=== PATIENT | female | born 1945 | race Caucasian/White ===

== ENCOUNTER → 2017-04-05 | Outpatient (CLI) | payer MEDICARE, BC ==
--- NOTE | 2017-04-05 12:18 | MM ---
Reason for exam: follow-up at short interval from prior study. Last mammogram was performed 8 months ago. History: Patient is postmenopausal, has history of high-risk lesion on a previous biopsy at age 66, and has history of breast cancer at age 65. Family history of premenopausal breast cancer in paternal cousin at age 49 and premenopausal breast cancer in paternal aunt at age 49. Benign MG stereo VAD BX LT of the left breast, August 23, 2016. High risk US RT VAD breast biopsy of the right breast, July 22, 2012. High risk US RT VAD breast biopsy of the right breast, July 22, 2012. Malignant left breast needle localization of the left breast, December 04, 2011. Lumpectomy of the left breast, December 04, 2011. Malignant left mammotome panel of the left breast, November 20, 2011. Benign excisional biopsy of the left breast, 1989. Benign excisional biopsy of the left breast, 1979. Benign excisional biopsy of the left breast, 1969. Took hormonal contraceptives for 3 months. Took estrogen for 5 years beginning at age 51. Physical Findings: Nurse did not find any significant physical abnormalities on exam. MG Diagnostic Mammo LT w CAD CC and MLO view(s) were taken of the left breast. Prior study comparison: August 03, 2016, bilateral MG 3d diag mammo w/cad ALBA. August 02, 2015, bilateral MG diagnostic mammo w CAD ALBA. July 10, 2014, bilateral MG diagnostic mammo w CAD ALBA. The breast tissue is heterogeneously dense. This may lower the sensitivity of mammography. Finding #1: Architectural distortion in the left breast. Finding #2: There are typically benign round calcifications in the left breast. There is no discrete abnormality. These results were verbally communicated with the patient and result sheet given to the patient on 04/05/17. ASSESSMENT: Benign, BI-RAD 2 RECOMMENDATION: Routine screening mammogram of both breasts in 5 months. Back on schedule.
== END | disposition home or self-care (01) ==
LOC: RADMAMWWP 10:22
PROVIDERS: ATTEND Surgery
DX: R92.8 Other abnormal and inconclusive findings on diagnostic imaging of breast (principal)

== ENCOUNTER → 2018-11-12 | Outpatient (CLI) | payer MEDICARE, BC ==
--- NOTE | 2018-11-16 11:55 | MM ---
Reason for exam: additional evaluation requested from prior study. Last mammogram was performed 1 year and 7 months ago. History: Patient is postmenopausal, has history of high-risk lesion on a previous biopsy at age 66, and has history of breast cancer at age 65. Family history of premenopausal breast cancer in paternal cousin at age 49 and premenopausal breast cancer in paternal aunt at age 49. Benign MG stereo VAD BX LT of the left breast, August 23, 2016. High risk US RT VAD breast biopsy of the right breast, July 22, 2012. High risk US RT VAD breast biopsy of the right breast, July 22, 2012. Malignant left breast needle localization of the left breast, December 04, 2011. Lumpectomy of the left breast, December 04, 2011. Malignant left mammotome panel of the left breast, November 20, 2011. Benign excisional biopsy of the left breast, 1989. Benign excisional biopsy of the left breast, 1979. Benign excisional biopsy of the left breast, 1969. Took hormonal contraceptives for 3 months. Took estrogen for 5 years beginning at age 51. Indicated problem(s): other indicated problem in the left breast. Physical Findings: Nurse did not find any significant physical abnormalities on exam. MG 3D Diag Mammo W/Cad ALBA Bilateral CC and MLO view(s) were taken. Prior study comparison: April 05, 2017, left breast MG diagnostic mammo LT w CAD. August 03, 2016, bilateral MG 3d diag mammo w/cad ALBA. The breast tissue is heterogeneously dense. This may lower the sensitivity of mammography. There is a distortion in the left breast at known biopsy sites. Previous mammotome biopsy in right x2. No discrete abnormality. These results were verbally communicated with the patient and result sheet given to the patient on 11/12/18. ASSESSMENT: Benign, BI-RAD 2 RECOMMENDATION: Follow-up diagnostic mammogram of both breasts in 1 year.
== END ==
LOC: RADMAMWWP 12:48
PROVIDERS: ATTEND Internal Medicine
DX: Z08 Encounter for follow-up examination after completed treatment for malignant neoplasm (principal); Z85.3 Personal history of malignant neoplasm of breast
CPT/HCPCS: 77066; G0279; 77062

== ENCOUNTER → 2018-11-14 | Outpatient (CLI) | payer MEDICARE, BC ==
--- NOTE | 2018-11-14 16:48 | BD ---
EXAMINATION TYPE: Axial Bone Density DATE OF EXAM: 11/14/2018 COMPARISON: NONE CLINICAL HISTORY: Height: 64.5 Weight: 157.2 FRAX RISK QUESTIONS: Alcohol (3 or more units per day): no Family History (Parent hip fracture): no Glucocorticoids (More than 3mos): no (Ex: prednisone, prednisolone, methylprednisolone, dexamethasone, and hydrocortisone). History of Fracture in Adulthood: no Secondary Osteoporosis: 1. Type 1 Diabetes: no 2. Hyperthyroidism: no 3. Menopause before 45: no 4. Malnutrition: no 5. Chronic liver disease: no Rheumatoid Arthritis: no Current Tobacco Use: no RISK FACTORS HISTORY OF: Family History of Osteoporosis: no Active: yes Diet low in dairy products/other sources of calcium: yes Postmenopausal woman: around 46 years old Lost more than 2 inches in height since high school: yes MEDICATIONS: bp meds, heart meds Additional History: pt had breast cancer 7 years ago EXAM MEASUREMENTS: Bone mineral densitometry was performed using the [employer] System. Bone mineral density as measured about the Lumbar spine is: ----- L1-L4(G/cm2): 1.326 T Score Values are as follows: ----- L2: 0.7 ----- L3: 2.7 ----- L4: 0.5 ----- L1-L4: 1.2 Bone mineral density has: increased 5.0 % since study of: 02.20.2012 Bone mineral density about the R hip (g/cm2): 1.091 Bone mineral density about the L hip (g/cm2): 0.989 T Score values are as follows: -----R Neck: 0.4 -----L Neck: -0.3 -----R Total: 1.3 -----L Total: 0.9 Bone mineral density has: increased 3.5 % since study of: 02.20.2012 IMPRESSION: Normal (Values between +1 and -1 indicate normal bone mass). Consider repeating this study in 5 year s or sooner if there is some new clinical indication. NOTE: T-SCORE=SD OF THE YOUNG ADULT MEAN.
== END ==
LOC: RADBDWWP 14:29
PROVIDERS: ATTEND Internal Medicine
DX: Z13.820 Encounter for screening for osteoporosis (principal); Z78.0 Asymptomatic menopausal state
CPT/HCPCS: 77080

== ENCOUNTER → 2020-08-18 | Outpatient (CLI) | payer MEDICARE ==
--- NOTE | 2020-08-18 13:50 | MM ---
Reason for exam: additional evaluation requested from prior study. Last mammogram was performed 1 year and 9 months ago. History: Patient is postmenopausal, has history of high-risk lesion on a previous biopsy at age 66, and has history of breast cancer at age 65. Family history of premenopausal breast cancer in paternal cousin at age 49 and premenopausal breast cancer in paternal aunt at age 49. Benign MG stereo VAD BX LT of the left breast, August 23, 2016. High risk US RT VAD breast biopsy of the right breast, July 22, 2012. High risk US RT VAD breast biopsy of the right breast, July 22, 2012. Malignant left breast needle localization of the left breast, December 04, 2011. Lumpectomy of the left breast, December 04, 2011. Malignant left mammotome panel of the left breast, November 20, 2011. Benign excisional biopsy of the left breast, 1989. Benign excisional biopsy of the left breast, 1979. Benign excisional biopsy of the left breast, 1969. Took hormonal contraceptives for 3 months. Took estrogen for 5 years beginning at age 51. Physical Findings: Nurse did not find any significant physical abnormalities on exam. MG 3D Diag Mammo W/Cad ALBA Bilateral CC and MLO view(s) were taken. Prior study comparison: November 12, 2018, bilateral MG 3d diag mammo w/cad ALBA. April 05, 2017, left breast MG diagnostic mammo LT w CAD. There are scattered fibroglandular densities. Previous mammotome biopsy in the right breast. Asymmetric breast tissue greater in the right breast. Post surgical changes left breast. No significant new findings when compared with previous films. These results were verbally communicated with the patient and result sheet given to the patient on 08/18/20. ASSESSMENT: Benign, BI-RAD 2 RECOMMENDATION: Follow-up diagnostic mammogram of both breasts in 1 year.
== END | disposition home or self-care (01) ==
LOC: RADMAMWWP 13:03
PROVIDERS: ATTEND Internal Medicine
DX: Z08 Encounter for follow-up examination after completed treatment for malignant neoplasm (principal); Z85.3 Personal history of malignant neoplasm of breast
CPT/HCPCS: 77066; G0279; 77062

== ENCOUNTER → 2021-09-20 | Outpatient (CLI) | payer MEDICARE ==
--- NOTE | 2021-09-20 14:55 | MM ---
Reason for exam: additional evaluation requested from prior study. Last mammogram was performed 1 year and 1 month ago. History: Patient is postmenopausal, has history of high-risk lesion on a previous biopsy at age 66, and has history of breast cancer at age 65. Family history of breast cancer in maternal grandmother, premenopausal breast cancer in paternal cousin at age 49, and premenopausal breast cancer in paternal aunt at age 49. Benign MG stereo VAD BX LT of the left breast, August 23, 2016. High risk US RT VAD breast biopsy of the right breast, July 22, 2012. High risk US RT VAD breast biopsy of the right breast, July 22, 2012. Malignant left breast needle localization of the left breast, December 04, 2011. Lumpectomy of the left breast, December 04, 2011. Malignant left mammotome panel of the left breast, November 20, 2011. Benign excisional biopsy of the left breast, 1989. Benign excisional biopsy of the left breast, 1979. Benign excisional biopsy of the left breast, 1969. Took hormonal contraceptives for 3 months. Took estrogen for 5 years beginning at age 51. Physical Findings: Nurse did not find any significant physical abnormalities on exam. MG 3D Diag Mammo W/Cad ALBA Bilateral CC and MLO view(s) were taken. Prior study comparison: August 18, 2020, bilateral MG 3d diag mammo w/cad ALBA. November 12, 2018, bilateral MG 3d diag mammo w/cad ALBA. There are scattered fibroglandular densities. Previous mammotome biopsy in the right breast. Asymmetric breast tissue greater in the left breast. Post surgical changes left breast. No significant new findings when compared with previous films. These results were verbally communicated with the patient and result sheet given to the patient on 09/20/21. ASSESSMENT: Benign, BI-RAD 2 RECOMMENDATION: Follow-up diagnostic mammogram of both breasts in 1 year.
== END | disposition home or self-care (01) ==
LOC: RADMAMWWP 13:15
PROVIDERS: ATTEND Internal Medicine
DX: C50.919 Malignant neoplasm of unspecified site of unspecified female breast (principal)
CPT/HCPCS: 77066; G0279; 77062

== ENCOUNTER 2023-02-23 07:59 | Observation (INO) | payer MEDICARE ==
[2023-02-23] MEDS ORDERED: SODIUM CHLORIDE 0.9% 500 ML 500 ML IV STA (08:13)
[2023-02-23] MEDS ORDERED: HEPARIN SODIUM 1,000 UN/ML (10ML VL) IV ONE (08:19)
--- NOTE | 2023-02-23 08:27 | ED ---
General Adult HPI - General Chief complaint: Arrhythmia/Palpitations Stated complaint: chest pain Time Seen by Provider: 02/23/23 08:00 Source: patient, family, RN notes reviewed, old records reviewed Mode of arrival: wheelchair Limitations: no limitations - History of Present Illness Initial comments: This is a 77-year-old female who is here at the hospital to get an endoscopy and when she was upstairs they noted her heart rate was over 130. The center down here to be evaluated. Patient states she's had tachycardia in the past but never had atrial fibrillation. Patient denies any chest pain shortness of breath or difficulty breathing. Patient denies any recent fever chills or cough per patient states she does not feel any palpitations. Patient denies any swelling to her legs or calf tenderness. Patient with any abdominal pain patient is a recent nausea vomiting diarrhea. - Related Data Home Medications Medication Instructions Recorded Confirmed Benazepril/Hydrochlorothiazide 1 each PO DAILY 02/21/23 02/23/23 [Benazepril-Hctz 10-12.5 mg Tab] Cholecalciferol [Vitamin D3 (25 50 mcg PO DAILY 02/21/23 02/23/23 Mcg = 1000 Iu)] Fexofenadine HCl [Shyanne Allergy] 180 mg PO DAILY 02/21/23 02/23/23 Magnesium 250 mg PO DAILY 02/21/23 02/23/23 Metoprolol Succinate (ER) [Toprol 25 mg PO DAILY 02/21/23 02/23/23 Xl] Omeprazole 20 mg PO DAILY 02/21/23 02/23/23 Zinc Glycinate [Zinc Chelate] 30 mg PO DAILY 02/21/23 02/23/23 Allergies Allergy/AdvReac Type Severity Reaction Status Date / Time banana Allergy Swelling Verified 02/23/23 08:04 Boyle And Derivatives Allergy Rash/Hives Verified 02/23/23 08:04 [Boyle] Latex, Natural Rubber Allergy swelling, Verified 02/23/23 08:04 rash, itching lidocaine Allergy Swelling, Verified 02/23/23 08:04 cold sensation throughout body potato Allergy throat Verified 02/23/23 08:04 swelling GALVEZ BEANS Allergy FACE Uncoded 02/23/23 08:04 SWELLING MANY ENVIRONMENT ALLERGIES Allergy Rash/Hives Uncoded 02/23/23 08:04 Review of Systems ROS Statement: Those systems with pertinent positive or pertinent negative responses have been documented in the HPI. ROS Other: All systems not noted in ROS Statement are negative. Past Medical History Past Medical History: Cancer, Chest Pain / Angina, GERD/Reflux, Hypertension, Liver Disease Additional Past Medical History / Comment(s): TACHYCARDIA. NON-ALCOHOLIC FATTY LIVER DISEASE. SLIGHT MEMORY ISSUES-AGE RELATED. DYSPNEA WITH CIGARETTE SMOKE AND HEAVY PERFUMES AND SCENTS. BASAL CELL SKIN CANCER. HYPOGLYCEMIA. BREAST CANCER History of Any Multi-Drug Resistant Organisms: None Reported Past Surgical History: Breast Surgery, Orthopedic Surgery Additional Past Surgical History / Comment(s): SKIN CANCER REMOVAL RIGHT HIGH. MULTIPLE BREAST BX'S. PARTIAL MASTECTOMY ON THE LEFT. ALBA. CARPAL TUNNEL RELEASE Additional Past Anesthesia/Blood Transfusion Reaction / Comment(s): TAKES A LONG TIME TO WAKE UP AND IS VERY SLEEPY AFTER Past Psychological History: No Psychological Hx Reported Smoking Status: Never smoker Past Alcohol Use History: Occasional Past Drug Use History: None Reported General Exam - General Exam Comments Initial Comments: GENERAL: Patient is well-developed and well-nourished. Patient is nontoxic and well- hydrated and is in no acute distress. ENT: Neck is soft and supple. No significant lymphadenopathy is noted. Oropharynx is clear. Moist mucous membranes. Neck has full range of motion without eliciting any pain. EYES: The sclera were anicteric and conjunctiva were pink and moist. Extraocular movements were intact and pupils were equal round and reactive to light. Eyelids were unremarkable. PULMONARY: Unlabored respirations. Good breath sounds bilaterally. No audible rales rhonchi or wheezing was noted. CARDIOVASCULAR: Patient is tachycardic with an irregular rate at about 130 beats a minute ABDOMEN: Soft and nontender with normal bowel sounds. SKIN: Skin is clear with no lesions or rashes and otherwise unremarkable. NEUROLOGIC: Patient is alert and oriented x3. Cranial nerves II through XII are grossly intact. Motor and sensory are also intact. Normal speech, volume and content. Symmetrical smile. MUSCULOSKELETAL: Normal extremities with adequate strength and full range of motion. No lower extremity swelling or edema. No calf tenderness. LYMPHATICS: No significant lymphadenopathy is noted PSYCHIATRIC: Normal psychiatric evaluation. [id number] Limitations: no limitations Course Vital Signs 02/23/23 02/23/23 08:01 08:48 Temperature 97.9 F Pulse Rate 148 H 80 Respiratory 18 18 Rate Blood Pressure 134/92 144/79 O2 Sat by Pulse 98 95 Oximetry Medical Decision Making - Medical Decision Making EKG was interpreted by myself shows atrial fibrillation with rapid ventricular response at 123 bpm QRS is 70 QT interval 02 QTC is 375. Patient's EKG shows no ST segment dictation or depression. Patient converted to a sinus rhythm EKG was interpreted by myself the rate is at 79 bpm DC interval is on a 70 dresses 88 QT interval 362 QTC is 396. Patient's EKG shows no ST elevation. Patient does have T-wave inversions in 3 and aVF. Was pt. sent in by a medical professional or institution (, PA, DOT COMPLIANCE COORDINATOR, urgent care, hospital, or half-way...) When possible be specific @ -Patient was sent down to us from the operating room because they found her to have an irregular heartbeat Did you speak to anyone other than the patient for history (EMS, parent, family, police, friend...)? What history was obtained from this source @ -No Did you review nursing and triage notes (agree or disagree)? Why? @ -I reviewed and agree with nursing and triage notes Were old charts reviewed (outside hosp., previous admission, EMS record, old EKG, old radiological studies, urgent care reports/EKG's, half-way records)? Report findings @ -I reviewed prior EKGs and lab work on this patient Differential Diagnosis (chest pain, altered mental status, abdominal pain women, abdominal pain men, vaginal bleeding, weakness, fever, dyspnea, syncope, headache, dizziness, GI bleed, back pain, seizure, CVA, palpatations, mental health, musculoskeletal)? @ -Differential Palpitations Ventricular arrhythmias, atrial arrhythmias, myocardial infarction, anemia, thyrotoxicosis, electrolyte imbalance, hypokalemia, pulmonary embolism, pulmonary disease, drugs, alcohol, anxiety, stress.... This is not meant to be an all-inclusive list. EKG interpreted by me (3pts min.). @ -As above X-rays interpreted by me (1pt min.). @ -Chest x-ray was interpreted by myself I see no acute abnormality CT interpreted by me (1pt min.). @ -None done U/S interpreted by me (1pt. min.). @ -None done What testing was considered but not performed or refused? (CT, X-rays, U/S, labs)? Why? @ -None What meds were considered but not given or refused? Why? @ -None Did you discuss the management of the patient with other professionals (professionals i.e. , PA, DOT COMPLIANCE COORDINATOR, lab, RT, psych nurse, social science analyst, dish cloth inspector, teacher, financial services officer, case reviewer)? Give summary @ -Spoke with Dr. Lazo and he agreed to admit the patient Was smoking cessation discussed for >3mins.? @ -No Was critical care preformed (if so, how long)? @ -35 minutes Were there social determinants of health that impacted care today? How? (Homelessness, low income, unemployed, alcoholism, drug addiction, transportation, low edu. Level, literacy, decrease access to med. care, assisted, rehab)? @ -No Was there de-escalation of care discussed even if they declined (Discuss DNR or withdrawal of care, Hospice)? DNR status @ -No What co-morbidities impacted this encounter? (DM, HTN, Smoking, COPD, CAD, Cancer, CVA, ARF, Chemo, Hep., AIDS, mental health diagnosis, sleep apnea, morbid obesity)? @ -None Was patient admitted / discharged? Hospital course, mention meds given and route, prescriptions, significant lab abnormalities, going to OR and other pertinent info. @ -Started on a Cardizem drip and heparin. Patient converted to a normal sinus rhythm. I spoke with Dr. Lazo he agreed to admit the patient admitted the patient I wrote admitting orders and I consulted cardiology Undiagnosed new problem with uncertain prognosis? @ -No Drug Therapy requiring intensive monitoring for toxicity (Heparin, Nitro, Insulin, Cardizem)? @ -Heparin Were any procedures done? @ -No Diagnosis/symptom? @ -A. fib with rapid ventricular response Acute, or Chronic, or Acute on Chronic? @ -Acute Uncomplicated (without systemic symptoms) or Complicated (systemic symptoms)? @ -Uncomplicated Side effects of treatment? @ -No Exacerbation, Progression, or Severe Exacerbation? @ -No Poses a threat to life or bodily function? How? (Chest pain, [place], [place], pneumonia, PE, COPD, DKA, ARF, appy, cholecystitis, CVA, Diverticulitis, Homicidal, Suicidal, threat to staff... and all critical care pts) @ -Yes this can lead to poor cardiac output decreased perfusion and end organ dysfunction - Lab Data Result diagrams: 02/23/23 08:21 02/23/23 08:21 Lab Results 02/23/23 02/23/23 02/23/23 Range/Units 08:21 08:21 08:21 WBC 5.1 (3.8-10.6) k/uL RBC 5.38 (3.80-5.40) m/uL Hgb 15.7 (11.4-16.0) gm/dL Hct 48.1 H (34.0-46.0) % MCV 89.3 (80.0-100.0) fL MCH 29.1 (25.0-35.0) pg MCHC 32.6 (31.0-37.0) g/dL RDW 13.2 (11.5-15.5) % Plt Count 326 (150-450) k/uL MPV 6.7 Neutrophils % 52 % Lymphocytes % 36 % Monocytes % 6 % Eosinophils % 2 % Basophils % 0 % Neutrophils # 2.7 (1.3-7.7) k/uL Lymphocytes # 1.9 (1.0-4.8) k/uL Monocytes # 0.3 (0-1.0) k/uL Eosinophils # 0.1 (0-0.7) k/uL Basophils # 0.0 (0-0.2) k/uL PT 10.0 (9.0-12.0) sec INR 0.9 (<1.2) APTT 22.8 (22.0-30.0) sec Sodium 140 (137-145) mmol/L Potassium 3.7 (3.5-5.1) mmol/L Chloride 104 (98-107) mmol/L Carbon Dioxide 27 (22-30) mmol/L Anion Gap 9 mmol/L BUN 28 H (7-17) mg/dL Creatinine 0.86 (0.52-1.04) mg/dL Est GFR (CKD-EPI)AfAm 77 (>60 ml/min/1.73 sqM) Est GFR (CKD-EPI)NonAf 66 (>60 ml/min/1.73 sqM) Glucose 92 (74-99) mg/dL Calcium 9.6 (8.4-10.2) mg/dL Magnesium 1.9 (1.6-2.3) mg/dL Total Bilirubin 1.5 H (0.2-1.3) mg/dL AST 26 (14-36) U/L ALT 26 (4-34) U/L Alkaline Phosphatase 71 (38-126) U/L Troponin I (0.000-0.034) ng/mL Total Protein 6.8 (6.3-8.2) g/dL Albumin 4.0 (3.5-5.0) g/dL TSH 1.850 (0.465-4.680) mIU/L 02/23/23 Range/Units 08:21 WBC (3.8-10.6) k/uL RBC (3.80-5.40) m/uL Hgb (11.4-16.0) gm/dL Hct (34.0-46.0) % MCV (80.0-100.0) fL MCH (25.0-35.0) pg MCHC (31.0-37.0) g/dL RDW (11.5-15.5) % Plt Count (150-450) k/uL MPV Neutrophils % % Lymphocytes % % Monocytes % % Eosinophils % % Basophils % % Neutrophils # (1.3-7.7) k/uL Lymphocytes # (1.0-4.8) k/uL Monocytes # (0-1.0) k/uL Eosinophils # (0-0.7) k/uL Basophils # (0-0.2) k/uL PT (9.0-12.0) sec INR (<1.2) APTT (22.0-30.0) sec Sodium (137-145) mmol/L Potassium (3.5-5.1) mmol/L Chloride (98-107) mmol/L Carbon Dioxide (22-30) mmol/L Anion Gap mmol/L BUN (7-17) mg/dL Creatinine (0.52-1.04) mg/dL Est GFR (CKD-EPI)AfAm (>60 ml/min/1.73 sqM) Est GFR (CKD-EPI)NonAf (>60 ml/min/1.73 sqM) Glucose (74-99) mg/dL Calcium (8.4-10.2) mg/dL Magnesium (1.6-2.3) mg/dL Total Bilirubin (0.2-1.3) mg/dL AST (14-36) U/L ALT (4-34) U/L Alkaline Phosphatase (38-126) U/L Troponin I <0.012 (0.000-0.034) ng/mL Total Protein (6.3-8.2) g/dL Albumin (3.5-5.0) g/dL TSH (0.465-4.680) mIU/L Disposition Clinical Impression: Atrial fibrillation with rapid ventricular response Disposition: ADMITTED IP TO THIS HOSP Time of Disposition: 09:55
[2023-02-23] MEDS ORDERED: HEPARIN SOD,PORK IN 0.45% NACL 25,000 UNIT in 0.45% NACL 1 250ML.BAG IV SCH (08:30)
[2023-02-23] MEDS: DILTIAZEM DRIP BOLUS FROM BAG 1 MG SOLN IV ONE ×2 (08:38→08:51)
[2023-02-23 08:42] LABS: INR 0.9 (<1.2); Partial Thromboplastin Time 22.8 sec (22.0-30.0)
[2023-02-23 08:43] LABS: Basophils % (A) 0 %; Eosinophils # (A) 0.1 k/uL (0-0.7); Eosinophils % (A) 2 %; HCT 48.1 % (34.0-46.0); HGB 15.7 gm/dL (11.4-16.0); Lymphocytes # (A) 1.9 k/uL (1.0-4.8); Lymphocytes % (A) 36 %; MCH 29.1 pg (25.0-35.0); MCHC 32.6 g/dL (31.0-37.0); MCV 89.3 fL (80.0-100.0); Mean Platelet Volume 6.7; Monocytes # (A) 0.3 k/uL (0-1.0); Monocytes % (A) 6 %; Neutrophils # (A) 2.7 k/uL (1.3-7.7); Neutrophils % (A) 52 %; Platelet Count 326 k/uL (150-450); RBC 5.38 m/uL (3.80-5.40); RDW 13.2 % (11.5-15.5); WBC 5.1 k/uL (3.8-10.6)
[2023-02-23] MEDS ORDERED: DILTIAZEM 125 MG in SODIUM CHLORIDE 0.9% 100 ML IV SCH (08:45)
[2023-02-23 08:55] LABS: Calcium 9.6 mg/dL (8.4-10.2); Magnesium 1.9 mg/dL (1.6-2.3); Potassium 3.7 mmol/L (3.5-5.1); Total Bilirubin 1.5 mg/dL (0.2-1.3); Total Protein 6.8 g/dL (6.3-8.2)
--- NOTE | 2023-02-23 09:24 | XR ---
EXAMINATION TYPE: XR chest 2V DATE OF EXAM: 02/23/2023 COMPARISON: To 812 TECHNIQUE: PA and lateral views submitted. HISTORY: Dysrhythmia FINDINGS: The lungs are clear and there is no pneumothorax, pleural effusion, or focal pneumonia. Heart size normal and no overt failure. Osseous structures demonstrate hypertrophic and degenerative changes of the spine. AC joint arthropathy. Hyperinflation the lungs suggest COPD. IMPRESSION: 1. No acute process.
[2023-02-23] MEDS ORDERED: NITROGLYCERIN SL TABS 0.4 MG TAB SUBLINGUAL PRN (10:08)
--- NOTE | 2023-02-23 12:36 | P.CRDCN ---
History of Present Illness Consult date: 02/23/23 History of present illness: History of Present Illness: The patient is a 77-year-old female with known history of hypertension who presented to undergo upper endoscopy and prior to her procedure she was found to be in atrial fibrillation with rapid ventricle response. Patient has been told that she has an irregular heartbeat in the past but not atrial fibrillation, has been on metoprolol for a long time. She has occasional palpitations, brief. She did not feel the atrial fibrillation today. She has no dyspnea on exertion or chest discomfort. She denies any peripheral edema, PND or orthopnea. She has occasional dizziness but no syncope. Her [id number] score is 4. In the emergency room she was started on IV heparin and IV Cardizem. She is back in sinus mechanism at this time. Her troponin is normal. Medications: Toprol-XL 25 mg daily, benazepril HCT 1012-1/2 mg daily, omeprazole, magnesium, zinc Review of Systems: Respiratory: No history of asthma, bronchitis or recent cough. GI: She has occasional abdominal discomfort but no GI bleeding, she denies any nausea or vomiting : No hematuria or dysuria. Nervous System: No stroke or seizure. Physical Examination: 77-year-old female, alert and oriented no apparent distress ,Blood pressure 12 7/69, Heart rate 60 Head: Normocephalic. Eyes: Sclerae nonicteric. Neck: Good carotid upstroke, no bruit, no jugular venous distention. Lungs: Clear to auscultation. Heart: Regular rate and rhythm, S1-S2, no S3, no rub. No murmur. Abdomen: Soft nontender, positive bowel sounds no organomegaly. Extremities: No edema, intact distal pulses. Labs: Hemoglobin 15.7, potassium 3.7, BUN 28, creatinine 0.86, troponin less than 0.012. TSH 1.85. Chest x-ray with no acute infiltrate. EKG: Atrial fibrillation with rapid ventricle response and nonspecific ST-T wave changes, subsequent EKG sinus mechanism with nonspecific T wave changes inferiorly, cannot exclude inferior wall myocardial infarction of unknown duration. Impression: 1. Paroxysmal atrial fibrillation with a score of 4, probably going on for a long period of time 2. History of hypertension 3. Abnormal EKG with no documented history of myocardial infarction in the past 4. Prior history of abdominal discomfort with no history of GI bleeding Plan: 1. Stop IV heparin and IV Cardizem 2. Increase beta shira 3. Start anticoagulation with Eliquis 4. Obtain an echocardiogram with Doppler 5. Patient is stable with no further symptoms she may be able to be discharged home and followed up as an outpatient. 6. Thank you for this consult we will follow with you. Past Medical History Past Medical History: Cancer, Chest Pain / Angina, GERD/Reflux, Hypertension, Liver Disease Additional Past Medical History / Comment(s): TACHYCARDIA. NON-ALCOHOLIC FATTY LIVER DISEASE. SLIGHT MEMORY ISSUES-AGE RELATED. DYSPNEA WITH CIGARETTE SMOKE AND HEAVY PERFUMES AND SCENTS. BASAL CELL SKIN CANCER. HYPOGLYCEMIA. BREAST CANCER History of Any Multi-Drug Resistant Organisms: None Reported Past Surgical History: Breast Surgery, Orthopedic Surgery Additional Past Surgical History / Comment(s): SKIN CANCER REMOVAL RIGHT HIGH. MULTIPLE BREAST BX'S. PARTIAL MASTECTOMY ON THE LEFT. ALBA. CARPAL TUNNEL RELEASE Additional Past Anesthesia/Blood Transfusion Reaction / Comment(s): TAKES A LONG TIME TO WAKE UP AND IS VERY SLEEPY AFTER Past Psychological History: No Psychological Hx Reported Smoking Status: Never smoker Past Alcohol Use History: Occasional Past Drug Use History: None Reported Medications and Allergies Home Medications Medication Instructions Recorded Confirmed Type Benazepril/Hydrochlorothiazide 1 tab PO DAILY 02/21/23 02/23/23 History [Benazepril-Hctz 10-12.5 mg Tab] Cholecalciferol [Vitamin D3 (25 50 mcg PO DAILY 02/21/23 02/23/23 History Mcg = 1000 Iu)] Fexofenadine HCl [Shyanne Allergy] 180 mg PO DAILY 02/21/23 02/23/23 History Magnesium 250 mg PO DAILY 02/21/23 02/23/23 History Metoprolol Succinate (ER) [Toprol 25 mg PO DAILY 02/21/23 02/23/23 History Xl] Omeprazole 20 mg PO DAILY 02/21/23 02/23/23 History Zinc Glycinate [Zinc Chelate] 30 mg PO DAILY 02/21/23 02/23/23 History Allergies Allergy/AdvReac Type Severity Reaction Status Date / Time banana Allergy Swelling Verified 02/23/23 11:29 [place] And Derivatives Allergy Rash/Hives Verified 02/23/23 11:29 [[place]] Latex, Natural Rubber Allergy swelling, Verified 02/23/23 11:29 rash, itching lidocaine Allergy Swelling, Verified 02/23/23 11:29 cold sensation throughout body potato Allergy throat Verified 02/23/23 11:29 swelling GALVEZ BEANS Allergy FACE Uncoded 02/23/23 11:29 SWELLING MANY ENVIRONMENT ALLERGIES Allergy Rash/Hives Uncoded 02/23/23 11:29 Physical Exam Vitals: Vital Signs Temp Pulse Resp BP Pulse Ox 02/23/23 11:30 67 18 127/69 98 02/23/23 08:48 80 18 144/79 95 02/23/23 08:01 97.9 F 148 H 18 134/92 98 Intake and Output 02/22/23 02/23/23 02/23/23 22:59 06:59 14:59 Other: Weight 74.389 kg Results 02/23/23 08:21 02/23/23 08:21 Cardiac Enzymes 02/23/23 02/23/23 02/23/23 Range/Units 08:21 08:21 10:37 AST 26 (14-36) U/L Troponin I <0.012 <0.012 (0.000-0.034) ng/mL Coagulation 02/23/23 Range/Units 08:21 PT 10.0 (9.0-12.0) sec APTT 22.8 (22.0-30.0) sec CBC 02/23/23 Range/Units 08:21 WBC 5.1 (3.8-10.6) k/uL RBC 5.38 (3.80-5.40) m/uL Hgb 15.7 (11.4-16.0) gm/dL Hct 48.1 H (34.0-46.0) % Plt Count 326 (150-450) k/uL Comprehensive Metabolic Panel 02/23/23 Range/Units 08:21 Sodium 140 (137-145) mmol/L Potassium 3.7 (3.5-5.1) mmol/L Chloride 104 (98-107) mmol/L Carbon Dioxide 27 (22-30) mmol/L BUN 28 H (7-17) mg/dL Creatinine 0.86 (0.52-1.04) mg/dL Glucose 92 (74-99) mg/dL Calcium 9.6 (8.4-10.2) mg/dL AST 26 (14-36) U/L ALT 26 (4-34) U/L Alkaline Phosphatase 71 (38-126) U/L Total Protein 6.8 (6.3-8.2) g/dL Albumin 4.0 (3.5-5.0) g/dL Current Medications Generic Name Dose Route Start Last Admin Trade Name Freq PRN Reason Stop Dose Admin Apixaban 5 mg 02/23/23 12:30 Apixaban 5 Mg Tab PO BID COLT Protocol Metoprolol Succinate 25 mg 02/23/23 21:00 Metoprolol Succinate (Er) 25 Mg Tab.Er.24h PO BID COLT Non-Formulary Medication 1 tab 02/24/23 09:00 Benazepril/Hydrochlorothiazide [Benazepril-Hctz 10-12.5 Mg Tab] PO DAILY COLT Intake and Output 02/22/23 02/23/23 02/23/23 22:59 06:59 14:59 Other: Weight 74.389 kg Patient Weight 02/24/23 06:59 Weight 74.389 kg 02/23/23 08:21 02/23/23 08:21
[2023-02-23] MEDS: APIXABAN 5 MG TAB PO SCH ×2 (14:35→19:41)
--- NOTE | 2023-02-23 15:23 | P.HPIM ---
History of Present Illness H&P Date: 02/23/23 Chief Complaint: Sent to the ED for A. fib with RVR HPI Patient is a 77-year-old female with a past medical history of hypertension, GERD, seasonal ALLERGIES who was getting outpatient EGD because of heartburn symptoms. Before procedure and they checked her vital signs and she was found to be in A. fib with RVR so she was sent to the ED. Patient states that at the time when they checked her vital signs she did not have any palpitations. However she says that shortly afterwards when she went to lay down she could feel the palpitations. Patient's labs were unremarkable. Her troponins were negative 3. Her TSH was within normal limits. Before Cardizem was even initiated patient spontaneously converted back to normal sinus rhythm. Data reviewed: Initial EKG showed A. fib with RVR. Repeat EKG shows sinus rhythm. Review of systems: 10 ROS reviewed and are negative except as noted in HPI Physical exam General: [Alert and oriented, well nourished, no acute distress]. Eye: [PERRL, EOMI, normal conjunctiva]. HENT: [Normocephalic, clear tympanic membranes, normal hearing, moist oral mucosa, no scleral icterus, no sinus tenderness]. Neck: [Supple, non-tender, no carotid bruits, no JVD, no lymphadenopathy]. Lungs: [Clear to auscultation and percussion, non-labored respiration]. Heart: [Normal rate, regular rhythm, no murmur, gallop or edema]. Abdomen: [Soft, non-tender, non-distended, normal bowel sounds, no masses]. Musculoskeletal: [Normal range of motion and strength, no tenderness or swelling]. Skin: [Skin is warm, dry and pink, no rashes or lesions]. Neurologic: [Awake, alert, and oriented X3, CN II-XII intact]. Psychiatric: [Cooperative, appropriate mood and affect]. Assessment Paroxysmal atrial fibrillation History of hypertension GERD Plan I reviewed note from cardiology. Cardiology recommended to stop IV heparin and IV Cardizem Cardiology increased her beta shira and started patient on Eliquis Echocardiogram ordered. Anticipated discharge: Tomorrow Anticipated discharge place: Home Past Medical History Past Medical History: Cancer, Chest Pain / Angina, GERD/Reflux, Hypertension, Liver Disease Additional Past Medical History / Comment(s): TACHYCARDIA. NON-ALCOHOLIC FATTY LIVER DISEASE. SLIGHT MEMORY ISSUES-AGE RELATED. DYSPNEA WITH CIGARETTE SMOKE AND HEAVY PERFUMES AND SCENTS. BASAL CELL SKIN CANCER. HYPOGLYCEMIA. BREAST CANCER History of Any Multi-Drug Resistant Organisms: None Reported Past Surgical History: Breast Surgery, Orthopedic Surgery Additional Past Surgical History / Comment(s): SKIN CANCER REMOVAL RIGHT HIGH. MULTIPLE BREAST BX'S. PARTIAL MASTECTOMY ON THE LEFT. ALBA. CARPAL TUNNEL RELEASE Additional Past Anesthesia/Blood Transfusion Reaction / Comment(s): TAKES A LONG TIME TO WAKE UP AND IS VERY SLEEPY AFTER Past Psychological History: No Psychological Hx Reported Smoking Status: Never smoker Past Alcohol Use History: Occasional Past Drug Use History: None Reported Medications and Allergies Home Medications Medication Instructions Recorded Confirmed Type Benazepril/Hydrochlorothiazide 1 tab PO DAILY 02/21/23 02/23/23 History [Benazepril-Hctz 10-12.5 mg Tab] Cholecalciferol [Vitamin D3 (25 50 mcg PO DAILY 02/21/23 02/23/23 History Mcg = 1000 Iu)] Fexofenadine HCl [Shyanne Allergy] 180 mg PO DAILY 02/21/23 02/23/23 History Magnesium 250 mg PO DAILY 02/21/23 02/23/23 History Metoprolol Succinate (ER) [Toprol 25 mg PO DAILY 02/21/23 02/23/23 History Xl] Omeprazole 20 mg PO DAILY 02/21/23 02/23/23 History Zinc Glycinate [Zinc Chelate] 30 mg PO DAILY 02/21/23 02/23/23 History Apixaban [Eliquis] 5 mg PO BID #60 tab 02/23/23 Rx Allergies Allergy/AdvReac Type Severity Reaction Status Date / Time banana Allergy Swelling Verified 02/23/23 11:29 [place] And Derivatives Allergy Rash/Hives Verified 02/23/23 11:29 [[place]] Latex, Natural Rubber Allergy swelling, Verified 02/23/23 11:29 rash, itching lidocaine Allergy Swelling, Verified 02/23/23 11:29 cold sensation throughout body potato Allergy throat Verified 02/23/23 11:29 swelling G[place]VEZ BEANS Allergy FACE Uncoded 02/23/23 11:29 SWELLING MANY ENVIRONMENT ALLERGIES Allergy Rash/Hives Uncoded 02/23/23 11:29 Physical Exam Osteopathic Statement: *. No significant issues noted on an osteopathic structural exam other than those noted in the History and Physical/Consult. Vitals: Vital Signs Temp Pulse Resp BP Pulse Ox 02/23/23 15:00 70 18 110/61 95 02/23/23 14:51 62 18 117/61 96 02/23/23 14:00 66 18 115/60 94 L 02/23/23 13:00 67 18 117/61 95 02/23/23 11:30 67 18 127/69 98 02/23/23 08:48 80 18 144/79 95 02/23/23 08:01 97.9 F 148 H 18 134/92 98 Intake and Output 02/23/23 02/23/23 02/23/23 06:59 14:59 22:59 Intake Total 44.340 Balance 44.340 Intake: Intake, IV Titration 44.340 Amount Diltiazem 125 mg In 10.417 Sodium Chloride 0.9% 100 ml @ 5 MG/HR 5 mls/hr IV .Q24H [facility] Rx#:[id number] Heparin Sod,Pork in 0.45% 33.923 NaCl 25,000 unit In 0.45 % NaCl 1 250ml.bag @ 12 UNITS/KG/HR 8.927 mls/hr IV .Q24H [facility] Rx#: [id number] Other: Weight 74.389 kg Results CBC & Chem 7: 02/23/23 08:21 02/23/23 08:21 Labs: Abnormal Lab Results - Last 24 Hours (Table) 02/23/23 02/23/23 Range/Units 08:21 08:21 Hct 48.1 H (34.0-46.0) % BUN 28 H (7-17) mg/dL Total Bilirubin 1.5 H (0.2-1.3) mg/dL
--- NOTE | 2023-02-23 18:11 | CA ---
Transthoracic Echo Report Name: Emeli Scott Age: 77 Gender: F : 1945 Exam Date: 02/23/2023 16:11 Exam Location: [facility] Ht (in): 66 Wt (lb): 164 Ordering Physician: Marcy Sands MD ([id number]) Attending/Referring Phys: Display Specialist Ciara Bill RDCS Procedure CPT: Indications: afib Cardiac Hx: Technical Quality: Technically difficult study Contrast 1: Lumason Total Dose (mL): 4 Contrast 2: Total Dose (mL): MEASUREMENTS (Male / Female) Normal Values 2D ECHO LV Diastolic Diameter PLAX 3.8 cm 4.2 - 5.9 / 3.9 - 5.3 cm LV Systolic Diameter PLAX 2.7 cm IVS Diastolic Thickness 1.4 cm 0.6 - 1.0 / 0.6 - 0.9 cm LVPW Diastolic Thickness 1.3 cm 0.6 - 1.0 / 0.6 - 0.9 cm LV Relative Wall Thickness 0.7 RV Internal Dim ED PLAX 3.9 cm LA Volume 46.3 cm??? 18 - 58 / 22 - 52 cm??? M-MODE Aortic Root Diameter MM 2.7 cm LA Systolic Diameter MM 3.9 cm LA Ao Ratio MM 1.5 AV Cusp Separation MM 1.6 cm DOPPLER AV Peak Velocity 92.1 cm/s AV Peak Gradient 3.4 mmHg AV Mean Velocity 65.7 cm/s AV Mean Gradient 2.0 mmHg AV Velocity Time Integral 18.8 cm AI Peak Velocity 368.5 cm/s AI Peak Gradient 54.3 mmHg AI Pressure Half Time 446.8 ms LVOT Peak Velocity 73.9 cm/s LVOT Peak Gradient 2.2 mmHg LVOT Velocity Time Integral 18.4 cm MV Area PHT 3.7 cm??? Mitral E Point Velocity 48.4 cm/s Mitral A Point Velocity 87.6 cm/s Mitral E to A Ratio 0.6 MV Deceleration Time 205.9 ms FINDINGS Left Ventricle Moderately increased left ventricular wall thickness. Left ventricular cavity size normal. Normal left ventricular systolic function with no obvious regional wall motion abnormalities. Left ventricular ejection fraction is estimated at 55-60 %. Right Ventricle Moderate right ventricular dilatation. Right ventricular systolic pressure within normal limits. Right Atrium Normal right atrial size. Left Atrium Normal left atrial size. Mitral Valve Structurally normal mitral valve. No mitral stenosis,or prolapse.mild mitral regurgitation. Aortic Valve No aortic valve stenosis , mild regurgitation. Aortic valve sclerosis. Tricuspid Valve Mild tricuspid regurgitation.structurally normal tricuspid valve. Pulmonic Valve Pulmonic valve not well visualized. Pericardium No pericardial effusion. Aorta Normal size aortic root and proximal ascending aorta. CONCLUSIONS 1. Normal ventricle size and systolic function 2. Mild mitral, tricuspid and aortic regurgitation Previewed by: Dr. Marcy Sands MD (Electronically Signed) Final Date: 23 Feb 2023 18:10
[2023-02-23] MEDS: METOPROLOL SUCCINATE (ER) 25 MG TAB.ER.24H PO SCH (19:41)
[2023-02-24 03:34] VITALS: TEMP 97.7
[2023-02-24 07:32] VITALS: BP 125/62; PULSE 61; RESP 18
[2023-02-24] MEDS ORDERED: PANTOPRAZOLE 40 MG TABLET PO SCH (09:00)
[2023-02-24] MEDS ORDERED: LISINOPRIL-HCTZ 10-12.5 MG 1 EACH TAB PO SCH (09:00)
[2023-02-24] MEDS ORDERED: MAGNESIUM OXIDE 400 MG TAB PO SCH (09:00)
[2023-02-24] MEDS ORDERED: ASPIRIN 325 MG TAB PO SCH (09:00)
[2023-02-24] MEDS: LORATADINE 10 MG TAB PO SCH ×2 (09:40→09:42)
[2023-02-24] MEDS: METOPROLOL SUCCINATE (ER) 25 MG TAB.ER.24H PO SCH (09:40)
[2023-02-24] MEDS: APIXABAN 5 MG TAB PO SCH (09:40)
[2023-02-24 09:47] LABS: Chol/HDL Ratio 2.99 Ratio; LDL Cholesterol,Calculated 65.3 mg/dL (0.0-131.0)
--- NOTE | 2023-02-24 11:11 | P.PN ---
Subjective Progress Note Date: 02/24/23 The patient is a 77-year-old female with known history of hypertension who presented to undergo upper endoscopy and prior to her procedure she was found to be in atrial fibrillation with rapid ventricle response. Patient has been told that she has an irregular heartbeat in the past but not atrial fibrillation, has been on metoprolol for a long time. She has occasional palpitations, brief. She did not feel the atrial fibrillation today. She has no dyspnea on exertion or chest discomfort. She denies any peripheral edema, PND or orthopnea. She has occasional dizziness but no syncope. Her [id number] score is 4. In the emergency room she was started on IV heparin and IV Cardizem. She is back in sinus mechanism at this time. Her troponin is normal. 02/24/2023 Upon examination patient is resting comfortably in bed. She is feeling well from a cardiac standpoint. She is anticoagulated. She is currently on metoprolol succinate 25 mg by mouth twice a day maintaining sinus mechanism. Echocardiogram with Doppler study showed a normal LV systolic function with mild AI, MR and TR. Objective - Vital Signs Vital signs: Vital Signs Temp 97.7 F 02/24/23 07:00 Pulse 61 02/24/23 07:00 Resp 18 02/24/23 09:38 BP 125/62 02/24/23 07:00 Pulse Ox 98 02/24/23 07:41 FiO2 Intake & Output 02/23/23 02/24/23 02/24/23 18:59 06:59 18:59 Intake Total 162.340 120 Balance 162.340 120 Weight 74.389 kg Intake: Intake, IV Titration 44.340 Amount Diltiazem 125 mg In 10.417 Sodium Chloride 0.9% 100 ml @ 5 MG/HR 5 mls/hr IV .Q24H [facility] Rx#:[id number] Heparin Sod,Pork in 0.45% 33.923 NaCl 25,000 unit In 0.45 % NaCl 1 250ml.bag @ 12 UNITS/KG/HR 8.927 mls/hr IV .Q24H [facility] Rx#: [id number] Oral 118 120 Other: # Voids 1 - Exam Head: Normocephalic. Eyes: Sclerae nonicteric. Neck: Good carotid upstroke, no bruit, no jugular venous distention. Lungs: Clear to auscultation. Heart: Regular rate and rhythm, S1-S2, no S3, no rub. No murmur. Abdomen: Soft nontender, positive bowel sounds no organomegaly. Extremities: No edema, intact distal pulses. - Labs CBC & Chem 7: 02/23/23 08:21 02/23/23 08:21 Assessment and Plan Assessment: 1. Paroxysmal atrial fibrillation with a score of 4, probably going on for a long period of time 2. History of hypertension 3. Abnormal EKG with no documented history of myocardial infarction in the past 4. Prior history of abdominal discomfort with no history of GI bleeding Plan: From cardiology's perspective medications were reviewed and will continue the same. Patient may be discharged home. She'll follow-up in the office with Dr. Sands. OIL RIGGER note has been reviewed, I agree with a documented findings and plan of care. Patient was seen and examined.
--- NOTE | 2023-02-24 11:52 | P.DS ---
Providers Date of admission: 02/23/23 10:09 Attending physician: Barbara Fisher MD Consults: 02/23/23 10:08 Consult Physician Urgent Consulting Provider: [facility] Consult Reason/Comments: A. fib with rapid ventricular response Do you want consulting provider notified?: Yes Primary care physician: Alonso Maravilla MD Hospital Course: Discharge Diagnosis: A. fib with RVR, hypertension, GERD, seasonal ALLERGIES Hospital Course: Patient is a 77-year-old female with a past medical history of hypertension, GERD, seasonal ALLERGIES who was getting outpatient EGD because of heartburn symptoms. Before procedure and they checked her vital signs and she was found to be in A. fib with RVR so she was sent to the ED. Patient states that at the time when they checked her vital signs she did not have any palpitations. However she says that shortly afterwards when she went to lay down she could feel the palpitations. Patient's labs were unremarkable. Her troponins were negative 3. Her TSH was within normal limits. Before Cardizem was even initiated patient spontaneously converted back to normal sinus rhythm. Patient was seen by cardiology and she was started on Eliquis and her metoprolol was increased to 25 mg twice a day instead of once daily. Patient's echocardiogram was unremarkable. Patient was monitored for 24 hours and she remained in normal sinus rhythm. She was deemed stable for discharge by cardiology. Patient seen and examined at bedside on 02/24/2023.[] Vital signs reviewed and stable. General examination - Alert and Oriented 3 in NAD Heart - + S1S2 no murmurs Lungs - Clear to auscultation Abdomen soft NT ND +ve BS Extremities - No edema RESEARCH HOME ECONOMIST - Moving all 4 extremities spontaneously Psych - Calm and cooperative A total of [33] minutes of time were spent preparing this complex discharge summary . Patient Condition at Discharge: Good Plan - Discharge Summary Discharge Rx Participant: No New Discharge Prescriptions: New Apixaban [Eliquis] 5 mg PO BID #60 tab Metoprolol Succinate (ER) [Toprol XL] 25 mg PO BID 30 Days #60 tab Continue Zinc Glycinate [Zinc Chelate] 30 mg PO DAILY Fexofenadine HCl [Shyanne Allergy] 180 mg PO DAILY Benazepril/Hydrochlorothiazide [Benazepril-Hctz 10-12.5 mg Tab] 1 tab PO DAILY Magnesium 250 mg PO DAILY Cholecalciferol [Vitamin D3 (25 Mcg = 1000 Iu)] 50 mcg PO DAILY Omeprazole 20 mg PO DAILY Discontinued Metoprolol Succinate (ER) [Toprol Xl] 25 mg PO DAILY Discharge Medication List Benazepril/Hydrochlorothiazide [Benazepril-Hctz 10-12.5 mg Tab] 1 tab PO DAILY 02/21/23 [History] Cholecalciferol [Vitamin D3 (25 Mcg = 1000 Iu)] 50 mcg PO DAILY 02/21/23 [History] Fexofenadine HCl [Shyanne Allergy] 180 mg PO DAILY 02/21/23 [History] Magnesium 250 mg PO DAILY 02/21/23 [History] Omeprazole 20 mg PO DAILY 02/21/23 [History] Zinc Glycinate [Zinc Chelate] 30 mg PO DAILY 02/21/23 [History] Apixaban [Eliquis] 5 mg PO BID #60 tab 02/23/23 [Rx] Metoprolol Succinate (ER) [Toprol XL] 25 mg PO BID 30 Days #60 tab 02/24/23 [Rx] Follow up Appointment(s)/Referral(s): Marcy Sands MD [STAFF PHYSICIAN] - 2 Weeks Alonso Maravilla MD [Primary Care Provider] - 1-2 days Patient Instructions/Handouts: A-fib (Atrial Fibrillation) (DC) Discharge Disposition: HOME SELF-CARE
== END 2023-02-24 13:10 | disposition home or self-care (01) ==
LOC: EC 07:59 → 6NMEDSUR 10:09
PROVIDERS: ADMIT Internal Medicine; ATTEND Internal Medicine
DX: I48.0 Paroxysmal atrial fibrillation (principal); I10 Essential (primary) hypertension; K21.9 Gastro-esophageal reflux disease without esophagitis; K76.0 Fatty (change of) liver, not elsewhere classified; J30.2 Other seasonal allergic rhinitis; Z79.899 Other long term (current) drug therapy; Z88.4 Allergy status to anesthetic agent; Z91.040 Latex allergy status; Z91.018 Allergy to other foods; Z91.048 Other nonmedicinal substance allergy status; Z85.828 Personal history of other malignant neoplasm of skin; Z85.3 Personal history of malignant neoplasm of breast; Z90.12 Acquired absence of left breast and nipple; Z98.890 Other specified postprocedural states
CPT/HCPCS: 96376; 96368; 96365; 96366; 99291; 36415; 94760; 93005; 80061; 80053; 83735; 84443; 84484; 85025; 85610; 85730; 71046; G0378 ×2; C8929; J1644 ×2; Q9950; 93306

== ENCOUNTER 2023-04-10 08:35 | Day surgery (SDC) | payer MEDICARE ==
[2023-04-05 09:54] VITALS: BMI 26.4
[2023-04-10] MEDS ORDERED: LACTATED RINGERS 1,000 ML IV SCH (08:46)
[2023-04-10 09:05] VITALS: TEMP 97.6
[2023-04-10 09:13] LABS: Glucose,Whole Blood 86 mg/dL (70-110)
[2023-04-10] MEDS ORDERED: PROPOFOL 10 MG/ML 20 ML VIAL IV ONE (09:24)
--- NOTE | 2023-04-10 09:33 | P.PCN ---
Date of Procedure: 04/10/23 Procedure(s) Performed: BRIEF HISTORY: Patient is a 77-year-old, pleasant, white female scheduled for an upper endoscopy as a part of evaluation of left upper quadrant abdominal pain and heartburn for the last few months duration.. She was recently started on omeprazole 20 mg daily and symptoms are gradually improving. She denies any nausea vomiting. No dysphagia or odynophagia. PROCEDURE PERFORMED: Esophagogastroduodenoscopy biopsy. PREOPERATIVE DIAGNOSIS: Left Upper quadrant abdominal pain. IV sedation per anesthesia. PROCEDURE: After informed consent was obtained, the patient was brought into the endoscopy unit. IV sedation was administered by Anesthesia under continuous monitoring. Initially the Olympus GIF-140 video endoscope was inserted into the mouth. Esophagus intubated without any difficulty. It was gradually advanced into the stomach and duodenum and carefully examined. The bulb and the second part of the duodenum appeared normal. The scope at this time was withdrawn to the stomach, adequately insufflated with air, and upon careful examination, mucosa of the antrum had diffuse erythema consistent with gastritis and biopsies were done from this area. Mucosa of the, body, cardia and the fundus appeared normal. The scope was then withdrawn into the esophagus. Small hiatal hernia noted. The GE junction was located at 39 cm from the incisors. The esophagus appeared normal. There were no erosions or ulcerations seen and the patient tolerated the procedure well. IMPRESSION: 1. Small hiatal hernia but no evidence of esophagitis or Blanchard's esophagus. 2. Diffuse antral gastritis. RECOMMENDATIONS: The findings of this examination were discussed with the patie nt as well as a family. She was advised to have with the biopsy results. Continue with omeprazole 20 mg daily and follow antireflux measures. She will be seen in office in 3-4 weeks..
[2023-04-10 10:02] VITALS: BP 120/65; PULSE 67; RESP 18
== END 2023-04-10 10:20 | disposition home or self-care (01) ==
LOC: ORWHC2ENDO 08:35
PROVIDERS: ATTEND Internal Medicine Gastroenterology
DX: K29.50 Unspecified chronic gastritis without bleeding (principal); K44.9 Diaphragmatic hernia without obstruction or gangrene; K22.89 Other specified disease of esophagus; K21.9 Gastro-esophageal reflux disease without esophagitis; I48.91 Unspecified atrial fibrillation; I10 Essential (primary) hypertension; Z79.01 Long term (current) use of anticoagulants; Z79.899 Other long term (current) drug therapy; Z91.048 Other nonmedicinal substance allergy status; Z91.040 Latex allergy status; Z88.4 Allergy status to anesthetic agent
CPT/HCPCS: 88305; 43239; J2704

== ENCOUNTER → 2023-06-11 | Outpatient (CLI) | payer MEDICARE ==
--- NOTE | 2023-06-11 12:18 | CT ---
EXAMINATION TYPE: CT abdomen wo con DATE OF EXAM: 06/11/2023 COMPARISON: None HISTORY: 77-year-old female R1 0.9, LUQ pain, Rt sided pain TECHNIQUE: Contiguous axial scanning of the abdomen without IV contrast. Coronal and sagittal reconst ructions performed. CT DLP: 326.6 mGycm Automated exposure control for dose reduction was used. FINDINGS: Post surgical changes left breast. Heart upper limits of normal in size. Strandy scarring or atelecta sis in the lower lungs. Small hiatal hernia. Couple small hypodensities within the liver measuring up to 5 mm too small for accurate CT characteri zation, probable cysts. Gallbladder shows no abnormal distention. Right adrenal gland, bilateral kidneys, and pancreas within normal limits. Small calcified granuloma within the spleen. There is a left adrenal nodule measuring 2.2 cm. Density of 20 Hounsfield units is indeterminate. No dilated small bowel, free fluid, or free air. No mesenteric or retroperitoneal lymphadenopathy see n. Normal appendix. Mild stool burden. Scattered colonic diverticulosis. There is some minimal focal per icolonic stranding along the mid descending colon, axial images 43 and 44 and coronal image 53. Pelvis not imaged. Bones: Hypertrophic facet arthropathy. Degenerative grade 1 anterolisthesis L3-L4. IMPRESSION: 1. GENERALIZED COLONIC DIVERTICULOSIS. THERE IS SOME MINIMAL SOFT TISSUE STRANDING AT THE MID DESCEND ING COLON THAT COULD REPRESENT PROMINENT PERICOLONIC VESSELS VERSUS MILD INFLAMMATION RELATING TO ACU TE DIVERTICULITIS. CLINICALLY CORRELATE. NO ABSCESS OR FREE AIR. 2. SMALL HIATAL HERNIA. 3. PELVIS NOT IMAGED.
== END | disposition home or self-care (01) ==
LOC: RADCTMAIN 08:59
PROVIDERS: ATTEND Family Medicine
DX: K57.30 Diverticulosis of large intestine without perforation or abscess without bleeding (principal); K44.9 Diaphragmatic hernia without obstruction or gangrene
CPT/HCPCS: 74150

== ENCOUNTER → 2024-03-21 | Outpatient (CLI) | payer MEDICARE ==
--- NOTE | 2024-04-01 13:41 | MM ---
Reason for Exam: Follow-up at short interval from prior study. Last mammogram was performed 1 year(s) and 3 month(s) ago. Patient History: Menarche at age 13. First Full-Term at age 24. Postmenopausal. Breast cancer, left, age 65. Estrogen for 5 years from age 51 until age 56. Hormonal Contraceptives for 3 months. 12/04/2011, Lumpectomy on the Left side. 1989, Benign Excisional Biopsy on the left side. 1979, Benign Excisional Biopsy on the left side. 1969, Benign Excisional Biopsy on the left side. 08/23/2016, Benign Core Biopsy on the left side. 07/22/2012, High risk Core Biopsy on the right side. 07/22/2012, High risk Core Biopsy on the right side. 12/04/2011, Malignant Excisional Biopsy on the left side. 11/20/2011, Malignant Core Biopsy on the left side. 2011, Radiation Therapy on the left side. Maternal grandmother had breast cancer. Maternal cousin had breast cancer, age 49. Paternal aunt had breast cancer, age 49. Prior Study Comparison: 01/18/1996 Screening Mammogram, Unknown. 08/02/2015 Bilateral Diagnostic Mammogram, [facility]. 08/03/2016 Bilateral Diagnostic Mammogram, [facility]. 04/05/2017 Left Diagnostic Mammogram, [facility]. 11/12/2018 Bilateral Diagnostic Mammogram, [facility]. 08/18/2020 Bilateral Diagnostic Mammogram, [facility]. 09/20/2021 Bilateral Diagnostic Mammogram, [facility]. 12/07/2022 Bilateral MG 3D diag mammo w/cad ALBA, [facility]. Tissue Density: There are scattered areas of fibroglandular density. Findings: Analyzed By CAD. The pattern appears stable. Postlumpectomy changes are within the left breast. Left breast smaller than the right. Coronary markers are within the bilateral breasts. Scattered benign round calcifications are present. No suspicious groups of microcalcifications, spiculated or lobular masses, architectural distortion or other secondary signs of malignancy are mammographically apparent. Overall Assessment: Benign, BI-RAD 2 Management: Screening Mammogram of both breasts in 1 year. A negative mammogram report should not preclude additional follow up of suspicious palpable abnormalities. Patient should continue monthly self breast exam. A clinical breast exam by your physician is recommended on an annual basis and results should be correlated with mammographic findings. Note on Jayne scores and lifetime risk: 1. A Jayne score greater than 3% is considered moderate risk. If this is the case, consider specialist referral to assess eligibility for a risk reducing agent. 2. If overall lifetime risk for the development of breast cancer is 20% or higher, the patient may qualify for future screening with alternating mammogram and breast MRI. Electronically signed and approved by: aDmon Lorenzana D.O. Radiologis
== END | disposition home or self-care (01) ==
LOC: RADMAMWWP 14:28
PROVIDERS: ATTEND Family Medicine
DX: R92.323 Mammographic fibroglandular density, bilateral breasts (principal); D05.12 Intraductal carcinoma in situ of left breast; R92.1 Mammographic calcification found on diagnostic imaging of breast; Z80.3 Family history of malignant neoplasm of breast; Z78.0 Asymptomatic menopausal state
CPT/HCPCS: 77066; G0279; 77062

== ENCOUNTER → 2024-08-28 | Outpatient (CLI) | payer MEDICARE ==
--- NOTE | 2024-08-30 18:08 | BD ---
EXAMINATION TYPE: Axial Bone Density DATE OF EXAM: 08/28/2024 CLINICAL HISTORY: 78 years old Female. ICD-10 CODE: Z78.0 ASYMP [place] , Additional History: Height: 64 Weight: 159 FRAX RISK QUESTIONS: Secondary Osteoporosis: 3. Menopause before 45: yes RISK FACTORS HISTORY OF: MEDICATIONS: EXAM MEASUREMENTS: Bone mineral densitometry was performed using the [employer] System. Bone mineral density as measured about the Lumbar spine is: ----- L1-L4(G/cm2): 1.317 T Score Values are as follows: ----- L1: 0.7 ----- L2: 1.0 ----- L3: 1.6 ----- L4: 1.0 ----- L1-L4: 1.1 Z Score Values are as follows: ----- L1: 2.2 ----- L2: 2.5 ----- L3: 3.1 ----- L4: 2.6 ----- L1-L4: 2.7 Bone mineral density has: Increased 7.3% since study of: 02-20-12 Bone mineral density about the R hip (g/cm2): 1.154 Bone mineral density about the L hip (g/cm2): 1.081 T Score values are as follows: -----R Neck: 0.2 -----L Neck: -0.4 -----R Total: 1.2 -----L Total: 0.6 Z Score values are as follows: -----R Neck: 2.1 -----L Neck: 1.5 -----R Total: 2.9 -----L Total: 2.3 Bone mineral density has: Increased 0.6% since study of: 02-20-12 FRAX%s: The graph provided illustrates a 9.2% chance for a major osteoporotic fx and a 1.2% chance fo r the hips probability for fx in 10 years time. IMPRESSION: Normal (Values between +1 and -1 indicate normal bone mass). Consider repeating this study in 5 year s or sooner if there is some new clinical indication. NOTE: T-SCORE=SD OF THE YOUNG ADULT MEAN. [facility], Workstation: TIMMY 08/30/2024 6:05 PM
== END | disposition home or self-care (01) ==
LOC: RADBDWWP 11:17
PROVIDERS: ATTEND Internal Medicine
DX: Z13.820 Encounter for screening for osteoporosis (principal); Z78.0 Asymptomatic menopausal state
CPT/HCPCS: 77080